=== PATIENT | male | born 1945 | race Caucasian/White ===

== ENCOUNTER → 2017-06-08 | Outpatient (CLI) | payer MEDICARE ==
[~2017-06-08] MED LIST: ASPIR-TRIN325 M1 PO; Antivert PO; CIPRO500 MG PO; Cozaar PO; FLOMAX0.4 M1 PO; LIPITOR; LIPITOR20 MG PO; NEW MED; VITAMIN C; VITAMIN D1000 INTUN PO; ZITHROMAX Z-PA250 MG PO
== END | disposition home or self-care (01) ==
LOC: CDC 11:32
DX: Z01.810 Encounter for preprocedural cardiovascular examination (principal)
CPT/HCPCS: 93000

== ENCOUNTER 2017-06-14 17:41 | Emergency (ER) | payer OTHER ==
[~2017-06-14] VITALS: Ht 175.3 cm; Wt 75.6 kg
[2017-06-14] MEDS ORDERED: PREDNISONE10 MG PO (20:19)
[2017-06-14 21:03] VITALS: BP 129/61
== END 2017-06-14 21:03 | disposition home or self-care (01) ==
LOC: EME 17:41
DX: M54.12 Radiculopathy, cervical region (principal); E78.5 Hyperlipidemia, unspecified; N40.0 Benign prostatic hyperplasia without lower urinary tract symptoms; K21.9 Gastro-esophageal reflux disease without esophagitis; F17.200 Nicotine dependence, unspecified, uncomplicated; Z79.82 Long term (current) use of aspirin; Z86.73 Personal history of transient ischemic attack (TIA), and cerebral infarction without residual deficits; Z88.0 Allergy status to penicillin
CPT/HCPCS: 72040; 99281; 99284; J1100

== ENCOUNTER 2017-08-06 03:08 | Emergency (ER) | payer OTHER ==
[~2017-08-06] VITALS: Ht 175.3 cm; Wt 74.8 kg
[~2017-08-06 03:08] MED LIST changes: +PREDNISONE10 MG PO
[2017-08-06 03:48] LABS: HEMATOCRIT 36.5 % (38.0-50.0); HEMOGLOBIN 12.3 G/DL (12.5-16.6); MCH 29.2 PG (29.0-34.0); MCHC 33.7 G/DL (30.0-36.0); MCV 86.7 FL (86-99); PLATELET COUNT 289 K/uL (156-360); RBC DIS.WIDTH-CV 13.6 % (11.8-14.6); RBC DIS.WIDTH-SD 42.6 % (39-53); RED BLOOD COUNT 4.21 M/uL (4.00-5.50)
[2017-08-06 04:07] LABS: CHLORIDE 104 mEq/L (99-109); POTASSIUM 4.6 mEq/L (3.7-5.4); SODIUM 140 mEq/L (136-147)
[2017-08-06 04:08] LABS: GLUCOSE 94 mg/dL (70-99)
[2017-08-06 04:11] LABS: TROP-I INTERPRETATION NEGATIVE; TROPONIN-I 0.01 ng/mL (0.0-0.30)
[2017-08-06 04:12] LABS: CREATININE 0.8 mg/dL (0.6-1.3); GFR ESTIMATE (CALCULATED) > 59 mL/min/ (58.99-99999)
[2017-08-06 04:13] LABS: UREA NITROGEN (BUN) 10 mg/dL (9-23)
[2017-08-06] MEDS ORDERED: FLEXERIL10 MG PO (04:49)
[2017-08-06] MEDS ORDERED: LIDOCAINE700 MG TP (04:49)
[2017-08-06] MEDS ORDERED: NORCO 5/3251 TABLET PO (04:49)
[2017-08-06 05:23] VITALS: BP 143/70
== END 2017-08-06 05:24 | disposition home or self-care (01) ==
LOC: EME 03:08
PROVIDERS: Emergency Medicine
DX: S46.911A Strain of unspecified muscle, fascia and tendon at shoulder and upper arm level, right arm, initial encounter (principal); K29.70 Gastritis, unspecified, without bleeding; R91.1 Solitary pulmonary nodule; R42 Dizziness and giddiness; R06.02 Shortness of breath; V49.40XA Driver injured in collision with unspecified motor vehicles in traffic accident, initial encounter; Y92.410 Unspecified street and highway as the place of occurrence of the external cause; E78.5 Hyperlipidemia, unspecified; Z86.73 Personal history of transient ischemic attack (TIA), and cerebral infarction without residual deficits; Z79.82 Long term (current) use of aspirin; F17.200 Nicotine dependence, unspecified, uncomplicated
CPT/HCPCS: 71250; 73030; 80048; 84484; 85027; 93005; 99281; 99284